=== PATIENT | female | born 1995 | race Caucasian/White ===

== ENCOUNTER 2023-02-17 21:30 | Emergency (ER) | payer BC ==
[~2023-02-17] VITALS: Ht 170.2 cm; Wt 88.0 kg
[2023-02-17 22:38] VITALS: O2SAT 98
[2023-02-17] MEDS ORDERED: IBUPROFEN 600MG TABLET PO ONE (23:15)
[2023-02-17] MEDS ORDERED: LIDOCAINE HCL/EPINEPHRINE 1%-EPI 1:100,000 50 ML VIAL INFIL ONE (23:15)
[2023-02-17] MEDS ORDERED: LIDOCAINE HCL 1% 20ML VIAL (Pyxis) INJ INFIL ONE (23:15)
[2023-02-18 01:40] VITALS: BP 122/78; PULSE 92; RESP 18; TEMP 98.3
== END 2023-02-18 01:41 | disposition home or self-care (01) ==
LOC: ER 21:30
DX: S01.81XA Laceration without foreign body of other part of head, initial encounter (principal); S06.9X0A Unspecified intracranial injury without loss of consciousness, initial encounter; F12.90 Cannabis use, unspecified, uncomplicated; Z98.890 Other specified postprocedural states; W22.8XXA Striking against or struck by other objects, initial encounter; Y93.89 Activity, other specified; Y92.89 Other specified places as the place of occurrence of the external cause; Y99.8 Other external cause status
CPT/HCPCS: 12014; 99282

== ENCOUNTER 2023-02-22 19:06 | Emergency (ER) | payer BC ==
[~2023-02-22] VITALS: Ht 170.2 cm; Wt 84.4 kg
[2023-02-22] MEDS ORDERED: IBUP-2028 MT (22:11)
[2023-02-22 22:20] VITALS: BP 121/80; PULSE 96; RESP 16; TEMP 98.6
== END 2023-02-22 22:27 | disposition home or self-care (01) ==
LOC: ER 19:06
DX: S01.81XD Laceration without foreign body of other part of head, subsequent encounter (principal); R51.9 Headache, unspecified; F12.10 Cannabis abuse, uncomplicated; X58.XXXD Exposure to other specified factors, subsequent encounter
CPT/HCPCS: 70450; 99284; Z7610 ×2